=== PATIENT | female | born 1980 | race Caucasian/White ===

== ENCOUNTER 2025-02-02 12:35 | Outpatient (REF) | payer BC, SELFPAY ==
--- NOTE | ~2025-02-02 | XR_ITS ---
EXAMINATION: XR HAND 3 OR MORE VIEWS LEFT HISTORY: M79.642 - Pain in left hand COMPARISON: Comparison is made with the prior examination dated 02/02/2025. FINDINGS: Three views of the left hand are submitted. Osseous mineralization is normal. There is been interval relocation of the previously seen dislocation of the 5th finger at the PIP joint. There is an intra-articular fracture of the palmar aspect of the base of the middle phalanx. The joint spaces are preserved. The soft tissues are unremarkable. XR/XR hand LT min 3V IMPRESSION: Interval reduction of the previously seen dislocation of the 5th finger at the PIP joint. There is an intra-articular fracture of the palmar aspect of the base of the middle phalanx. Electronically signed by: Venancio Cherry MD 02/05/2025 11:33 AM [facility]
--- NOTE | ~2025-02-02 | XR_ITS ---
EXAMINATION: XR HAND, LEFT CLINICAL INFORMATION: M79.642 - Pain in left hand COMPARISON: None available. TECHNIQUE: PA, lateral, and oblique views of the left hand. FINDINGS: There is posterior subluxation PIP joint fifth digit without acute fracture. A small avulsed bone fragment anterior to distal end proximal phalanx fifth digit likely arising from the proximal volar aspect of mid phalanx fifth digit.. There is mild soft tissue swelling. Rest of the digits are unremarkable. XR/XR hand LT min 3V IMPRESSION: Posterior subluxation PIP joint fifth digit with avulsion fracture fragment along the volar aspect of PIP joint fifth digit. The fragment arises of the proximal volar margin of mid phalanx fifth digit. There is mild soft tissue swelling. Electronically signed by: Saul Severino MD 02/03/2025 10:36 AM [facility]
--- NOTE | ~2025-02-02 | XR_ITS ---
EXAMINATION: XR HAND, RIGHT CLINICAL INFORMATION: M79.641 - Pain in right hand COMPARISON: None available. TECHNIQUE: PA, lateral, and oblique views of the right hand. FINDINGS: There is an oblique nondisplaced fracture mid fifth metacarpal. No additional fractures seen. Mild soft tissue swelling. No additional fractures seen. XR/XR hand RT min 3V IMPRESSION: Oblique nondisplaced fracture mid diaphysis fifth metacarpal. There is mild soft tissue swelling. Electronically signed by: Saul Severino MD 02/03/2025 10:30 AM [facility]
== END 2025-02-02 12:36 | disposition home or self-care (01) ==
LOC: HO.HOSX 12:35
PROVIDERS: Visit Provider Orthopaedic Surgery
DX: M79.642 Pain in left hand (principal); M79.641 Pain in right hand; S62.356D Nondisplaced fracture of shaft of fifth metacarpal bone, right hand, subsequent encounter for fracture with routine healing; S63.287A Dislocation of proximal interphalangeal joint of left little finger, initial encounter; S62.627A Displaced fracture of middle phalanx of left little finger, initial encounter for closed fracture; W20.8XXA Other cause of strike by thrown, projected or falling object, initial encounter; Y93.79 Activity, other specified sports and athletics; Y92.39 Other specified sports and athletic area as the place of occurrence of the external cause; Y99.9 Unspecified external cause status
CPT/HCPCS: 26600; 26770; 73130; J0665; J2003

== ENCOUNTER 2025-02-02 13:28 | Outpatient (AMB) | payer BC, SELFPAY ==
--- NOTE | 2025-02-02 14:13 | A.OFFVIS_ITS ---
Vital Signs 02/02/25 14:21 Height 5 ft 3 in Weight 99 lb BMI 17.5 Intake Visit Reasons: FC Bilat hand fx Intake Note: Qiana 44 yr old right hand dominant female presents today for bilateral hands. States while at the gym she put her hand out to protect her face from a slam ball falling on her face today 02/02/25. States she felt mild pain and notice something of off. Seen at urgent care where xrays were taken and was told she has a fracture on her small finger. Currently states she has a lot of pain and swelling. Allergies No Known Allergies Allergy (Verified 02/02/25 14:19) HPI HPI FC Bilat hand fx: Details: Qiana is a 44 year old right hand dominant woman who presents with bilateral hand fractures. She says she was at the gym earlier today when she had an accident while trying to catch something. She tried to block her face with her hands so she would not be hit, and her fingers all bent backwards. She complains of pain in her both of her hands today, and is apprehensive about having anything done today in clinic. [facility] Social History (Updated 02/02/25 @ 14:21 by TRACY Jiang) Current occupation: clinical supervsior/ rt hand Review of Systems Const All systems reviewed & are unremarkable except as noted in HPI and below Physical Exam Vital Signs: BMI result Body Mass Index 17.5 Const General: cooperative, healthy appearing and no acute distress Orientation/consciousness: patient oriented x3 HEENT Head: Yes normocephalic and Yes atraumatic Eyes EOM: EOMs intact bilaterally Resp Effort & Inspection: normal respiratory effort and able to speak in complete sentences Cardio Jugular venous distension: no JVD Skin General skin exam: turgor normal Rashes: no rashes Neuro General: patient oriented x3 Extrem Other: Evaluation of Bilateral Upper Extremity: The patient is alert, oriented, and in no acute distress She became tearful when we started talking about needing to give her a shot and perform a closed reduction of her left small finger Neuro: Median, Ulnar, Radial nerves motor and sensory intact Vascular: Cap refill brisk Right hand: Ecchymosis & swelling ulnar aspect of hand She can weakly flex her fingers to a fist & extend her digits, with no malrotation Most tender over the 5th metacarpal fracture site Left: Most tender over the small finger PIP joint She has a visible dorsal ulnar dislocation of the left small finger PIP joint not particularly tender elsewhere in the hand Radiographs: 3 views of the right hand were taken and viewed by me today in clinic. They show a right 5th metacarpal shaft fracture, spiral oblique & minimally displaced. 3 views of the left hand were taken and viewed by me today in clinic. They show a left small finger PIP joint dorsal ulnar dislocation, with a displaced fracture of the volar base of the middle phalanx. Postreduction films show a concentrically reduced left small finger PIP joint. Again we do see the volar avulsion fracture off the volar base of the middle phalanx. Fortunately, even though this is a fairly good size piece of bone it is only a small percentage of the articular surface, and does not appear to be lending to instability. Psych Appearance: grossly normal Affect: normal affect Attitude: cooperative Office Procedures AMB Fracture Care Details: Fracture care 1. Right 5th metacarpal shaft fracture 95263 2. Left small finger PIP joint dorsal dislocation 3. Left small finger middle phalanx fracture volar base Closed reduction of the small finger PIP joint performed in clinic today, after being given an ulnar nerve block Fracture Billing Code: Fracture Billing Code Assessment & Plan Assessment & Plan (1) Nondisp fx shaft fifth metacarpal bone right hand w/routine heal: Code(s): S62.356D - Nondisplaced fracture of shaft of fifth metacarpal bone, right hand, subsequent encounter for fracture with routine healing Category: Medical (2) Dislocation of proximal interphalangeal joint of left little finger: Code(s): S63.287A - Dislocation of proximal interphalangeal joint of left little finger, initial encounter Category: Medical (3) Fracture of middle phalanx of left little finger: Code(s): S62.627A - Displaced fracture of middle phalanx of left little finger, initial encounter for closed fracture Category: Medical Plan Assessment & Plan: 1. Left small finger PIP joint dorsal ulnar fracture dislocation of the volar base of the middle phalanx From an impact injury at the gym, DOI: 02/02/25 Closed reduction performed in clinic: 02/02/25 2. Right 5th metacarpal shaft fracture, spiral oblique From an impact injury at the gym, DOI: 02/02/25 I educated her about these conditions I discussed operative and non-operative treatment options I recommend a reduction of the left small finger today in clinic. The patient was tearful and apprehensive today, but was in agreement Her reduction was successful today in clinic, which the patient tolerated well In office procedures: Left Ulnar nerve block: Infiltrated about the left ulnar nerve at the wrist with a combination of 1% lidocaine and 0.5% Marcaine. She felt somewhat lightheaded following this and proceeded to lay down in the cast room for a short time. Left small finger PIP joint closed reduction: After assuring that we had a good block I then performed a gentle closed reduction of the left small finger PIP joint dislocation. Following the reduction she was able to actively bring her fingers close to a fist including the small finger. She was then able to actively extend all digits including the small finger. The small finger PIP joint appeared to be stable on exam following our reduction. She does understand that if she has trouble with instability, that we might need to consider operative treatment. At this point however I think that is a good chance that this will not be necessary. Her left ring & small fingers were Ralph-taped today in clinic, to be worn for the next 4 weeks except for showering she will work on gentle range of motion and avoid hyper extension of the small finger She was fitted for a right velcro wrist splint, and her right small & ring fingers were Ralph-taped together, to be worn in the same way.? I discussed activity modifications, she is to lift nothing heavier than a cellphone bilaterally for the next 4 to 6 weeks She will follow up in 2 weeks for a ROM check. If she is doing well she can follow up in 4 weeks instead. Radiographs of both hands at the four-week check. Please note that greater than 60 minutes was spent with this patient going over the history, evaluating the patient and radiographs, formulating possible treatment options, discussing them with the patient, and documenting the visit. Scribed for Coral Parks MD by Jaime Blackwell, medical records manager, on 02/02/25 at 2:40 PM, EST. Orders: Orders XR hand LT min 3V Today M79.642 - Pain in left hand XR hand RT min 3V Today M79.641 - Pain in right hand XR hand LT min 3V Today M79.642 - Pain in left hand Coding Level of Care Code New Pt Level 5 (62271) Diagnoses Nondisp fx shaft fifth metacarpal bone right hand w/routine heal S62.356D Dislocation of proximal interphalangeal joint of left little finger S63.287A Fracture of middle phalanx of left little finger S62.627A CPT Codes Fracture Care - Fracture Billing Code: Fracture Billing Code ([id number])
[2025-02-02 14:21] VITALS: BMI 17.5
== END 2025-02-02 16:20 | disposition home or self-care (01) ==
PROVIDERS: Visit Provider Orthopaedic Surgery
DX: S62.356D Nondisplaced fracture of shaft of fifth metacarpal bone, right hand, subsequent encounter for fracture with routine healing (principal); S63.287A Dislocation of proximal interphalangeal joint of left little finger, initial encounter; S62.627A Displaced fracture of middle phalanx of left little finger, initial encounter for closed fracture
CPT/HCPCS: 26600; 26770; 99205

== ENCOUNTER → 2025-02-02 13:30 | Outpatient (BNV) | payer BC, SELFPAY | PROVIDERS: Visit Provider Radiology Diagnostic Radiology | DX: Z47.89 Encounter for other orthopedic aftercare (principal) | CPT/HCPCS: 73130 ==

== ENCOUNTER 2025-02-16 08:40 | Outpatient (REF) | payer OTHER, SELFPAY ==
--- NOTE | ~2025-02-16 | XR_ITS ---
CLINICAL HISTORY: M79.642 - Pain in left hand 3 view left hand Comparison: None Findings: Avulsion fracture from the radial aspect of the middle phalanx of the 5th digit near the proximal interphalangeal joint.. No significant arthritic change. No erosions. No radiopaque foreign body. IMPRESSION: Mildly displaced avulsion type fracture likely arising from the radial aspect of the middle phalanx of the 5th digit near the proximal interphalangeal joint. This document has been electronically signed by: Isi Huff MD on 02/18/2025 09:06:36
--- NOTE | ~2025-02-16 | XR_ITS ---
CLINICAL HISTORY: M79.641 - Pain in right hand 3 view right hand Comparison: None Findings: Obliquely oriented minimally displaced fracture through the mid portion of the right 5th metacarpal. Sclerotic lesion within the distal 5th phalanx with a narrow zone of transition, likely a bone island. Similar lesion within the proximal aspect of the proximal phalanx of the thumb. Osseous structures are otherwise intact. No significant loss of joint space or osteophytes. No erosions. No radiopaque foreign body. IMPRESSION: 1. Obliquely oriented acute appearing mildly displaced right 5th metacarpal fracture. No other fractures. 2. Likely bone islands within the proximal phalanx of the thumb and distal phalanx of the right 5th digit. This document has been electronically signed by: Isi Huff MD on 02/18/2025 09:05:20
== END 2025-02-16 08:41 | disposition home or self-care (01) ==
LOC: HO.HOSX 08:40
PROVIDERS: Visit Provider Orthopaedic Surgery
DX: S62.627A Displaced fracture of middle phalanx of left little finger, initial encounter for closed fracture (principal); S62.326A Displaced fracture of shaft of fifth metacarpal bone, right hand, initial encounter for closed fracture; M79.641 Pain in right hand; M79.642 Pain in left hand
CPT/HCPCS: 73130

== ENCOUNTER 2025-02-16 14:41 | Outpatient (AMB) | payer BC, SELFPAY ==
--- NOTE | 2025-02-16 15:00 | A.OFFVIS_ITS ---
Vital Signs 02/16/25 15:03 Height 5 ft 3 in Weight 99 lb BMI 17.5 Intake Visit Reasons: FC Bilat hand fx Intake Note: Qiana 44 yr old female presents today for her follow up visit for her fracture of middle phalanx of left little finger DOI 02/02/25 ROM check. States pain and ROM has improved and is doing better. She still has a little soreness but better over all. Allergies No Known Allergies Allergy (Verified 02/02/25 14:19) HPI HPI FC Bilat hand fx: Details: Qiana is a 44 year old right hand dominant woman who returns for a follow-up of her bilateral hand fractures, S/P impact injury at the gym, DOI: 02/02/25. Her left small finger PIP joint was reduced in clinic on 02/02/25. She is here for a ROM check. She also has a right 5th metacarpal shaft fracture. She says her pain has improved somewhat, as has her ROM. PFSH Social History Current occupation: clinical supervsior/ rt hand Physical Exam Vital Signs: BMI result Body Mass Index 17.5 Extrem Other: Evaluation of Bilateral Upper Extremity: The patient is alert, oriented, and in no acute distress Cap refill brisk to all digits Right hand: Ecchymosis & swelling have mostly resolved She can flex her fingers to a fist & extend her digits, with no malrotation Mildly tender over the 5th metacarpal shaft Left: She still has some swelling about the left small finger PIP joint. She can actively flex all of her fingers including the small finger to a weak fist. She can then actively extend the small finger. Radiographs: 3 views of the right hand were taken and viewed by me today in clinic. They show a right 5th metacarpal shaft fracture, spiral oblique & minimally displaced. 3 views of the left hand were taken and viewed by me today in clinic. They show a concentrically reduced left small finger PIP joint with a displaced fracture of the volar base of the middle phalanx. Assessment & Plan Assessment & Plan (1) Nondisp fx shaft fifth metacarpal bone right hand w/routine heal: Code(s): S62.356D - Nondisplaced fracture of shaft of fifth metacarpal bone, right hand, subsequent encounter for fracture with routine healing Category: Medical (2) Dislocation of proximal interphalangeal joint of left little finger: Code(s): S63.287A - Dislocation of proximal interphalangeal joint of left little finger, initial encounter Category: Medical (3) Fracture of middle phalanx of left little finger: Code(s): S62.627A - Displaced fracture of middle phalanx of left little finger, initial encounter for closed fracture Category: Medical Plan Assessment & Plan: 1. Left small finger PIP joint dorsal ulnar fracture dislocation of the volar base of the middle phalanx From an impact injury at the gym, DOI: 02/02/25 Closed reduction performed in clinic: 02/02/25 2. Right 5th metacarpal shaft fracture, spiral oblique From an impact injury at the gym, DOI: 02/02/25 I educated her about these conditions She appears to be doing well. Her left ring & small fingers were Rahul-taped today in clinic, to be worn for the next 2-3 weeks except for showering. She will work on gentle range of motion and avoid hyper extension of the small finger She discontinued the Velcro wrist splint at home because she felt it was too big. Continue to rahul tape her right small and ring fingers, and work on PIP range of motion. I discussed activity modifications, she is to lift nothing heavier than a cellphone bilaterally for the next 2 to 4 weeks She will follow up in 3-4 weeks Scribed for Coral Parks MD by Jaime Blackwell, medical record retrieval specialist, on 02/16/25 at [ ] PM, EST. Orders: Orders XR hand RT min 3V Today M79.641 - Pain in right hand XR hand LT min 3V Today M79.642 - Pain in left hand Coding Level of Care Code Global (99080) Diagnoses Nondisp fx shaft fifth metacarpal bone right hand w/routine heal S62.356D Dislocation of proximal interphalangeal joint of left little finger S63.287A Fracture of middle phalanx of left little finger S62.627A
[2025-02-16 15:03] VITALS: BMI 17.5
== END 2025-02-16 15:30 | disposition home or self-care (01) ==
LOC: HO.HOS 14:41
PROVIDERS: Visit Provider Orthopaedic Surgery
DX: S62.356D Nondisplaced fracture of shaft of fifth metacarpal bone, right hand, subsequent encounter for fracture with routine healing (principal); S63.287A Dislocation of proximal interphalangeal joint of left little finger, initial encounter; S62.627A Displaced fracture of middle phalanx of left little finger, initial encounter for closed fracture
CPT/HCPCS: 99024

== ENCOUNTER → 2025-02-16 14:46 | Outpatient (BNV) | payer OTHER, SELFPAY | PROVIDERS: Visit Provider Radiology Diagnostic Radiology | DX: S62.326A Displaced fracture of shaft of fifth metacarpal bone, right hand, initial encounter for closed fracture (principal); S62.627A Displaced fracture of middle phalanx of left little finger, initial encounter for closed fracture | CPT/HCPCS: 73130 ==

== ENCOUNTER 2025-03-16 10:31 | Outpatient (REF) | payer OTHER, SELFPAY ==
--- NOTE | ~2025-03-16 | XR_ITS ---
EXAMINATION: XR HAND 3 OR MORE VIEWS LEFT HISTORY: M79.642 - Pain in left hand COMPARISON: Comparison is made with the prior examination dated 02/16/2025. FINDINGS: Three views of the left hand are submitted. Osseous mineralization is normal. Again seen is a mildly displaced intra-articular fracture of the volar aspect of the base of the middle phalanx of the 5th finger. No additional fracture is identified. The joint spaces are maintained. The soft tissues are unremarkable. XR/XR hand LT min 3V IMPRESSION: Mildly displaced intra-articular fracture of the volar aspect of the base of the middle phalanx of the 5th finger without significant change. Electronically signed by: Venancio Cherry MD 03/18/2025 07:23 AM EDT
--- NOTE | ~2025-03-16 | XR_ITS ---
EXAMINATION: XR HAND 3 OR MORE VIEWS RIGHT HISTORY: M79.641 - Pain in right hand COMPARISON: Comparison is made with the prior examination dated 02/16/2025. FINDINGS: Three views of the right hand are submitted. Osseous mineralization is normal. Again seen is a minimally displaced oblique fracture of the 5th metacarpal shaft. The fracture line is blurred and there is callus formation noted, consistent with healing. The joint spaces are preserved. The soft tissues are unremarkable. XR/XR hand RT min 3V IMPRESSION: Healing oblique fracture of the 5th metacarpal shaft. Electronically signed by: Venancio Cherry MD 03/18/2025 07:28 AM EDT
== END 2025-03-16 10:32 | disposition home or self-care (01) ==
LOC: HO.HOSX 10:31
DX: S62.627D Displaced fracture of middle phalanx of left little finger, subsequent encounter for fracture with routine healing (principal); S62.356D Nondisplaced fracture of shaft of fifth metacarpal bone, right hand, subsequent encounter for fracture with routine healing; M79.641 Pain in right hand; M79.642 Pain in left hand
CPT/HCPCS: 73130

== ENCOUNTER 2025-03-16 15:11 | Outpatient (AMB) | payer OTHER, SELFPAY ==
--- NOTE | 2025-03-16 15:19 | MHC.OFFVIS ---
Intake Visit Reasons: OV- B/L, L SF and R 5th MC fx Intake Note: Qiana is a 44 year old right hand dominant female who presents today for a follow up visit for her left small finger PIP joint dorsal ulnar fracture dislocation of the volar base of the middle phalanx and right 5th metacarpal shaft fracture, spiral oblique DOI: 02/02/25. On 02/16/25 she was advised to work on gentle range of motion and avoid hyper extension of the small finger. Patient reports that the right hand feels good, however in the left small finger she continues to have tenderness. It is painful if she bumps it on anything or rubsit too hard. She has improved ROM Allergies No Known Allergies Allergy (Verified 03/16/25 15:26) HPI HPI OV- B/L, L SF and R 5th fx: Details: Qiana is a 44 year old right hand dominant female who presents today for a follow up visit for her left small finger PIP joint dorsal ulnar fracture dislocation of the volar base of the middle phalanx and right 5th metacarpal shaft fracture, spiral oblique DOI: 02/02/25. On 02/16/25 she was advised to work on gentle range of motion and avoid hyper extension of the small finger. Patient reports that the right hand feels good, however in the left small finger she continues to have tenderness. It is painful if she bumps it on anything or rubsit too hard. She has improved ROM [facility] Social History Current occupation: clinical supervsior/ rt hand Review of Systems Const All systems reviewed & are unremarkable except as noted in HPI and below Physical Exam Extrem Other: Evaluation of Bilateral Upper Extremity: The patient is alert, oriented, and in no acute distress Cap refill brisk to all digits Right hand: Ecchymosis & swelling have resolved She can flex her fingers to a fist & extend her digits, with no malrotation Mildly tender over the 5th metacarpal shaft Left: She still has some swelling about the left small finger PIP joint. She can actively flex all of her fingers including the small finger to a weak fist. She can then actively extend the small finger. Results Reviewed Results Reviewed: X-rays obtained in the office today and independently reviewed by me, David Fishman PA-C, demonstrate minimally displaced spiral fracture of the right 5th metacarpal shaft with evidence of interval bony healing. There is also a minimally displaced fracture of the base of the middle phalanx of the left small finger, largely unchanged from previous x-rays Assessment & Plan Assessment & Plan (1) Nondisp fx shaft fifth metacarpal bone right hand w/routine heal: Code(s): S62.356D - Nondisplaced fracture of shaft of fifth metacarpal bone, right hand, subsequent encounter for fracture with routine healing Category: Medical (2) Dislocation of proximal interphalangeal joint of left little finger: Code(s): S63.287A - Dislocation of proximal interphalangeal joint of left little finger, initial encounter Category: Medical (3) Fracture of middle phalanx of left little finger: Code(s): S62.627A - Displaced fracture of middle phalanx of left little finger, initial encounter for closed fracture Category: Medical Plan Assessment & Plan: 1. Left small finger PIP joint dorsal ulnar fracture dislocation of the volar base of the middle phalanx From an impact injury at the gym, DOI: 02/02/25 Closed reduction performed in clinic: 02/02/25 2. Right 5th metacarpal shaft fracture, spiral oblique From an impact injury at the gym, DOI: 02/02/25 I educated her about these conditions She appears to be doing well. Her left ring & small fingers were Rahul-taped today in clinic, to be worn for the next 6 weeks with daytime activities, can remove while at rest. She will work on gentle range of motion and avoid hyper extension of the small finger She discontinued the Velcro wrist splint at home because she felt it was too big. Continue to rahul tape her right small and ring fingers, and work on PIP range of motion. I discussed activity modifications, she is to lift nothing heavier than a cellphone bilaterally for the next 2 to 4 weeks She will follow up in 3-4 weeks Scribed for Coral Parks MD by Jaime Blackwell medical administrative, on 02/16/25 at [ ] PM, EST. Orders: Orders XR hand LT min 3V Today M79.642 - Pain in left hand XR hand RT min 3V Today M79.641 - Pain in right hand Coding Level of Care Code Global (07915) Diagnoses Nondisp fx shaft fifth metacarpal bone right hand w/routine heal S62.356D Dislocation of proximal interphalangeal joint of left little finger S63.287A Fracture of middle phalanx of left little finger S62.674S
== END 2025-03-16 15:39 | disposition home or self-care (01) ==
LOC: HO.HOS 15:11
DX: S62.356D Nondisplaced fracture of shaft of fifth metacarpal bone, right hand, subsequent encounter for fracture with routine healing (principal); S63.287A Dislocation of proximal interphalangeal joint of left little finger, initial encounter; S62.627A Displaced fracture of middle phalanx of left little finger, initial encounter for closed fracture
CPT/HCPCS: 99024

== ENCOUNTER → 2025-03-16 15:12 | Outpatient (BNV) | payer OTHER, SELFPAY | PROVIDERS: Visit Provider Radiology Diagnostic Radiology | DX: M79.641 Pain in right hand (principal); M79.642 Pain in left hand | CPT/HCPCS: 73130 ==

== ENCOUNTER 2025-04-14 15:18 | Outpatient (REF) | payer OTHER, SELFPAY | END 2025-04-14 15:19 | disposition home or self-care (01) | LOC: HO.HOSX 15:18 | DX: Z13.89 Encounter for screening for other disorder (principal) ==

== ENCOUNTER 2025-04-14 15:18 | Outpatient (AMB) | payer OTHER, SELFPAY ==
--- NOTE | 2025-04-14 15:26 | MHC.OFFVIS ---
Vital Signs 04/14/25 15:27 Height 5 ft 3 in Weight 99 lb BMI 17.5 Intake Visit Reasons: OV- B/L L SF and R 5th [facility] fx-w/xrays Intake Note: Qiana is a 44 year old right hand dominant female who presents today for follow up status post left small finger PIP joint dorsal ulnar fracture dislocation of the volar base of the middle phalanx and right 5th metacarpal shaft fracture, spiral oblique DOI: 02/02/25. At her last visit she was instructed to rahul-tape her left ring & small fingers for 6 weeks and to remove it for rest and PIP ROM. Today, patient reports she is doing well. Denies any numbness, tingling, finger locking. Patient is not taking anything for pain currently. Allergies No Known Allergies Allergy (Verified 04/14/25 15:38) HPI HPI OV- B/L L SF and R 5th MC fx-w/xrays: Details: Qiana is a 44 year old right hand dominant female who presents today for follow up status post left small finger PIP joint dorsal ulnar fracture dislocation of the volar base of the middle phalanx and right 5th metacarpal shaft fracture, spiral oblique DOI: 02/02/25. At her last visit she was instructed to rahul-tape her left ring & small fingers for 6 weeks and to remove it for rest and PIP ROM. Today, patient reports she is doing well. Denies any numbness, tingling, finger locking. Patient is not taking anything for pain currently. [facility] Social History Current occupation: clinical supervsior/ rt hand Review of Systems Const All systems reviewed & are unremarkable except as noted in HPI and below Physical Exam Vital Signs: BMI result Body Mass Index 17.5 Extrem Other: Evaluation of Bilateral Upper Extremity: The patient is alert, oriented, and in no acute distress Cap refill brisk to all digits Right hand: Ecchymosis & swelling have resolved She can flex her fingers to a fist & extend her digits, with no malrotation No tenderness over 5th metacarpal shaft Left: She still has some swelling about the left small finger PIP joint. She can actively flex all of her fingers including the small finger to a full fist. She can then actively extend the small finger. Assessment & Plan Assessment & Plan (1) Nondisp fx shaft fifth metacarpal bone right hand w/routine heal: Code(s): S62.356D - Nondisplaced fracture of shaft of fifth metacarpal bone, right hand, subsequent encounter for fracture with routine healing Category: Medical (2) Dislocation of proximal interphalangeal joint of left little finger: Code(s): S63.287A - Dislocation of proximal interphalangeal joint of left little finger, initial encounter Category: Medical (3) Fracture of middle phalanx of left little finger: Code(s): S62.627A - Displaced fracture of middle phalanx of left little finger, initial encounter for closed fracture Category: Medical Plan Assessment & Plan: 1. Left small finger PIP joint dorsal ulnar fracture dislocation of the volar base of the middle phalanx From an impact injury at the gym, DOI: 02/02/25 Closed reduction performed in clinic: 02/02/25 2. Right 5th metacarpal shaft fracture, spiral oblique From an impact injury at the gym, DOI: 02/02/25 I educated her about these conditions She appears to be doing well. No further rahul taping needed. She will work on gentle range of motion and avoid hyper extension of the small finger She discontinued the Velcro wrist splint at home because she felt it was too big. Rahul taping no longer necessary I discussed activity modifications, she is to progress to a 10-15 lb weight limit over the next 4 weeks She will follow up in 4-5 weeks Coding Level of Care Code Global (06950) Diagnoses Nondisp fx shaft fifth metacarpal bone right hand w/routine heal S62.356D Dislocation of proximal interphalangeal joint of left little finger S63.287A Fracture of middle phalanx of left little finger S62.627A
[2025-04-14 15:27] VITALS: BMI 17.5
== END 2025-04-14 15:48 | disposition home or self-care (01) ==
LOC: HO.HOS 15:18
DX: S62.356D Nondisplaced fracture of shaft of fifth metacarpal bone, right hand, subsequent encounter for fracture with routine healing (principal); S63.287A Dislocation of proximal interphalangeal joint of left little finger, initial encounter; S62.627A Displaced fracture of middle phalanx of left little finger, initial encounter for closed fracture
CPT/HCPCS: 99024